=== PATIENT | male | born 1960 | race Caucasian/White ===

== ENCOUNTER 2018-09-12 20:18 | Emergency (ER) | payer MEDICAID ==
--- NOTE | 2018-09-12 20:48 | Emergency Department Record ---
History of Present Illness - General Chief complaint: ENT Stated complaint: EAR PAIN Time Seen by Provider: 09/12/18 20:43 Source: Patient Mode of Arrival: Ambulatory Limitations: No limitations - History of Present Illness Initial comments: 58 yo male presents with three days of right ear irritation and now some drainage. He states the ear felt irritated for a day then began to have some non bloody drainage. He denies any Qtip use. No other fever, chills, nausea, vomiting. He has had a cough. His hearing is a little muffled due to the fluid in the ear canal. No symptoms on the left. MD complaint: Ear pain Onset/Timin -: Days(s) Severity scale (1-10): 7 Quality: Aching Consistency: Constant Improves with: None Worsens with: None Context- Ear: Recent illness (cough and congestion) - Related Data Previous Rx's Medication Instructions Recorded Ciprofloxacin HCl [Cipro] 500 mg PO Q12HR #14 tablet 09/12/18 Allergies Allergy/AdvReac Type Severity Reaction Status Date / Time No Known Drug Allergies Allergy Unverified 04/03/17 13:43 Travel Screening - Travel/Exposure Within Last 30 Days Have you traveled within the last 30 days?: No Review of Systems Constitutional: Denies: Chills, Fever, Malaise, Weakness Eyes: Denies: Eye discharge ENT: Reports: Congestion, Ear pain, Hearing loss Respiratory: Reports: Cough Cardiovascular: Denies: Chest pain, Orthopnea Endocrine: Denies: Fatigue Gastrointestinal: Denies: Abdominal pain, Diarrhea, Nausea, Vomiting Genitourinary: Denies: Dysuria, Frequency, Hematuria Musculoskeletal: Denies: Myalgia Skin: Denies: Bruising, Change in color, Rash Neurological: Denies: Headache Psychiatric: Denies: Anxiety Hematological/Lymphatic: Denies: Blood Clots, Easy bleeding, Easy bruising Past Medical History - SOCIAL HISTORY Smoking Status: Never smoker Alcohol Use: None Drug Use: None - RESPIRATORY Hx Respiratory Disorders: Yes Hx COPD: Yes - CARDIOVASCULAR Hx Cardio Disorders: No - NEURO Hx Neuro Disorders: No - GI Hx GI Disorders: Yes Hx Abdominal Pain: Yes Hx Hiatal Hernia: Yes - Hx Genitourinary Disorders: No - ENDOCRINE Hx Endocrine Disorders: No - MUSCULOSKELETAL Hx Musculoskeletal Disorders: No - PSYCH Hx Psych Problems: No - HEMATOLOGY/ONCOLOGY Hx Hematology/Oncology Disorders: Yes Hx Cancer: Yes (stromall) Hx Chemotherapy: No Hx Radiation Therapy: No Family Medical History Any Significant Family History?: Yes Hx Heart Disease: Father Physical Exam - General General Appearance: Alert, Oriented x3, Cooperative, No acute distress Limitations: No limitations - Head Head exam: Atraumatic, Normal inspection - Eye Eye exam: Normal appearance. negative: Conjunctival injection - ENT ENT exam: Normal exam, Mucous membranes moist, Normal orophraynx. negative: TM' s normal bilaterally (Left TM is normal, Right obscurred by drainage in canal) Ear exam: External canal tenderness, Other (very mild canal swelling and erythema, mild whitish drainage in the canal, no blood). negative: Normal external inspection, Auricular hematoma, Auricular trauma Nasal Exam: Normal inspection Mouth exam: Normal external inspection Teeth exam: Normal inspection Throat exam: Normal inspection. negative: Tonsillar erythema, Tonsillomegaly, Tonsillar exudate, R peritonsillar mass, L peritonsillar mass - Neck Neck exam: Normal inspection, Full ROM. negative: Lymphadenopathy, Tenderness - Respiratory Respiratory exam: Normal lung sounds bilaterally. negative: Respiratory distress - Cardiovascular Cardiovascular Exam: Regular rate, Normal rhythm, Normal heart sounds - Neurological Neurological exam: Alert, Oriented X3 - Psychiatric Psychiatric exam: Normal affect, Normal mood - Skin Skin exam: Dry, Intact, Normal color, Warm Course Vital Signs 09/12/18 20:23 Temperature 97.4 F L Pulse Rate 74 Respiratory 20 Rate Blood Pressure 149/95 Pulse Ox 96 - Reevaluation(s) Reevaluation #1: 09/12/18 21:12 The examination is consistent with otitis externa at this time No mastoid tenderness or involvement Mild swelling and mild erythema He was instructed on the treatment and I recommended early recheck Friday or Friday Disposition Disposition: Discharge (otitis) Clinical Impression: Otitis externa Disposition: Home, Self-Care Condition: (1) Good Instructions: Otitis Externa (ED) Additional Instructions: Use 3 drops twice daily for the right ear Call your doctor on Friday at the Family Practice office for a recheck Return or be seen if worse, swelling or fever Prescriptions: Ciprofloxacin HCl [Cipro] 500 mg PO Q12HR #14 tablet Forms: Patient Portal Access Time of Disposition: 20:48 Quality - Quality Measures Quality Measures: N/A - Blood Pressure Screening Does Patient Have Any of the Following: No Blood Pressure Classification: Hypertensive Reading Systolic Measurement: 149 Diastolic Measurement: 95 Screening for High Blood Pressure: < Pre-Hypertensive BP, F/U Documented > [ [id number]] Pre-Hypertensive Follow-up Interventions: Referral to alternative/primary care provider.
[2018-09-12] MEDS: CIPROFLOXACIN HCL/DEXAMETHASONE OTIC SUSP OT ONE (21:12)
== END 2018-09-12 21:16 | disposition home or self-care (01) ==
LOC: ER 20:18
DX: H60.501 Unspecified acute noninfective otitis externa, right ear (principal)
CPT/HCPCS: 99282